=== PATIENT | female | born 1950 | race Caucasian/White ===

== ENCOUNTER 2016-12-23 07:11 | Observation (INO) | payer SELFPAY ==
[2016-12-23] MEDS ORDERED: NITROGLYCERIN 0.4 MG TAB.SUBL SL PRN (07:16)
[2016-12-23] MEDS ORDERED: ASPIRIN 81 MG CHEW TAB PO ONE (07:16)
[2016-12-23 07:31] LABS: BASOPHILS % 1.2 (0.0-1.5); EOSINOPHILS % 2.3 % (0.0-6.8); MEAN CORPUSCULAR HEMOGLOBIN 30.6 pg (28.0-34.0); MEAN CORPUSCULAR VOLUME 87.2 fl (80.0-100.0); MONOCYTES % 5.9 % (0.0-11.0); NEUTROPHILS # 3.7 # k/uL (1.4-7.7)
--- NOTE | 2016-12-23 07:43 | ED Physician Documentation ---
Chest Pain - HISTORIAN Historian: patient - HPI Stated Complaint: chest pain Chief Complaint: Chest Pain Onset: days ago (5 days) Timing: sudden onset (this AM at 04:30) Duration: waxing, waning Last known Well Date: 12/23/16 Last Known Well Time: 04:30 Last known Well Code/Unknown Code: Known Context: sleep Severity: moderate Quality: aching, sharp Chest Pain Radiation: back Chest Pain Signs/Symptoms: denies: nausea, vomiting, diaphoresis, cool extremities, dyspnea Worsened By: deep breaths Relieved By: nitroglycerin Further Comments: yes (Patient states that gabe has been ahving some intermittent chest pain that started on Sat while mowing the lawn. Has been having episodes since then, lasts for 15sec then goes away. Will have several episodes then goes away. Discribes as squeeze then release.) - ROS CONST: none. denies: fever, chills GI/: denies: vomiting, nausea, black stools - PAST HX [place] risk factors: hypertension, hyperlipidemia, cardiac disease DVT/PE Risk Factors: none Neuro deficit: none GI disease: GERD Immunizations: referred to PCP Allergies/Adverse Reactions: Allergies Allergy/AdvReac Type Severity Reaction Status Date / Time Penicillins Allergy Verified 12/23/16 07:33 red dye Allergy Verified 12/23/16 07:36 shellfish derived Allergy Verified 12/23/16 07:33 Sulfa (Sulfonamide Allergy Verified 12/23/16 07:33 Antibiotics) morphine AdvReac Hallucinati Verified 12/23/16 07:33 ons - SOCIAL HX Smoking History: greater than 1 pack/day (1 ppd) Alcohol Use: none Drug Use: none - FAMILY HX Family HX: CAD over 55 - VITAL SIGNS Vital Signs: Vital Signs Temp Pulse Resp BP Pulse Ox 98.1 F 91 H 15 167/118 99 12/23/16 07:11 12/23/16 07:16 12/23/16 07:11 12/23/16 07:11 12/23/16 07:16 - REVIEWED ASSESSMENTS Nursing Assessment Reviewed: Yes Vitals Reviewed: Yes Progress - Progress Progress: 08:43 Patient had two more short (seconds) episodes cramping like pain - EKG/XRAY/CT EKG: NSR (occasional PVC), nonspecific ST T wave chg XRAY: chest (WNL) ED Results Lab/Radiology - Lab Results Lab Results: Lab Results 12/23/16 07:25 WBC 6.50 K/ul K/ul (4.00-12.00) RBC 5.24 M/ul H M/ul (3.90-5.20) Hgb 16.0 g/dL g/dL (12.0-16.0) Hct 45.7 % % (34.5-46.5) MCV 87.2 fl fl (80.0-100.0) MCH 30.6 pg pg (28.0-34.0) MCHC 35.1 g/dL g/dL (30.0-36.0) RDW 13.3 % % (11.3-14.3) Plt Count 192 K/mm3 K/mm3 (130-400) Neut % (Auto) 57.0 % % (39.0-79.0) Lymph % (Auto) 32.0 % % (16.0-50.0) Amelia % (Auto) 5.9 % % (0.0-11.0) Eos % (Auto) 2.3 % % (0.0-6.8) Baso % (Auto) 1.2 (0.0-1.5) Neut # (Auto) 3.7 # k/uL # k/uL (1.4-7.7) Lymph # (Auto) 2.1 # k/uL # k/uL (0.6-4.0) Amelia # (Auto) 0.4 # k/uL # k/uL (0.0-0.9) Eos # (Auto) 0.2 # k/uL # k/uL (0.0-0.6) Baso # (Auto) 0.1 # k/uL # k/uL (0.0-0.5) Reactive Lymphs % 1.6 % % (0.0-5.0) Reactive Lymphs # 0.1 # k/uL # k/uL (0.0-0.8) - Orders Orders: ED Orders Category Date Time Status Continuous EKG monitoring Q30M Care 12/23/16 07:16 Active Continuous Pulse Oximetry Q30M Care 12/23/16 07:16 Active CHEST 1 VIEW [RAD] Stat Exams 12/23/16 07:16 Ordered CBC/PLATELET/DIFF Routine Lab 12/23/16 07:25 Completed CMP Routine Lab 12/23/16 07:25 Received CREATINE KINASE Routine Lab 12/23/16 07:25 Received TROPONIN I (cTnI) Stat Lab 12/23/16 07:25 Received Aspirin Med 12/23/16 07:16 Discontinued 324 mg PO NOW ONE Nitroglycerin [Nitroquick] Med 12/23/16 07:16 Ordered 0.4 mg SL Q5M PRN Oxygen Daily Oxygen 12/23/16 07:30 Ordered EKG WITH COMPARISON Stat Ther 12/23/16 07:16 Ordered Chest Pain Physical Exam - EXAM General Appearance: alert, mild distress EENT: ENT inspection normal, pharynx normal Neck: nml inspection, no carotid bruit. No: lymphadenopathy Respiratory: no resp. distress, chest non-tender, nml breath sounds, resp.distress. No: wheezes, rales, rhonchi CVS: reg. rate & rhythm (occasional skip beat (PVC)), no murmur, pulses full, pulses equal Abdomen: soft, no organomegaly Skin: warm/dry, normal color Extremities: non-tender. No: edema Neuro: oriented X3, mood/affect nml Discharge Clincal Impression: Atypical chest pain Condition: Stable Decision to Admit: [id number] Date of Decison to Admit: 12/23/16 Decision Time: 09:09
[2016-12-23 07:48] LABS: eGFR (African) > 60; eGFR (Non-African) > 60
[2016-12-23] MEDS ORDERED: MAG HYDROX/AL HYDROX/SIMETH 30 ML, Lidocaine 2%Visc 15ml 20 MG, PHENobarb/HYOSCY/ATROPI... PO ONE ×3 (09:05)
[2016-12-23] MEDS ORDERED: MAG HYDROX/AL HYDROX/SIMETH 30 ML UDC PO ONE ×2 (09:09→09:10)
[2016-12-23] MEDS ORDERED: Lidocaine 2%Visc 15ml 20 MG/ML UDC ONE (09:10)
[2016-12-23 09:35] LABS: APPEARANCE,URINE CLEAR (CLEAR); COLOR,URINE YELLOW (YELLOW); OCCULT BLOOD,URINE NEGATIVE (NEGATIVE)
[2016-12-23 09:36] LABS: UROBILINOGEN URINE 0.2 Eu (0.2-1.0)
[2016-12-23] MEDS ORDERED: PANTOPRAZOLE SODIUM 40 MG TABLET PO ONE (09:59)
[2016-12-23] MEDS ORDERED: ENOXAPARIN SODIUM 30 MG/0.3 ML DISP.SYRIN SQ SCH (10:00)
[2016-12-23] MEDS ORDERED: NICOTINE 14mg PATCH.TD24 TD SCH ×2 (11:00→13:00)
[2016-12-23 11:32] VITALS: BMI 60.4
--- NOTE | 2016-12-23 15:10 | Diagnostic Imaging Report ---
SIOMARA ARMAS [facility] [address] [facility].[address] [address] Report Submission Date: Dec 23, 2016 7:41:42 AM CDT Patient Study Name: LUCAS JEFFERY Date: Dec 23, 2016 7:19:47 AM CDT Modality Type: CR Gender: F Description: CHEST : 54 Institution: [facility] Physician: SIOMARA ARMAS HISTORY: 66-year-old female with chest pain. COMPARISON: None available. TECHNIQUE: Single portable AP view of the chest was performed. FINDINGS: No pneumothorax, consolidative infiltrates, or pulmonary edema. There is a right suprahilar calcified granuloma. The heart is not enlarged. IMPRESSION: Old granulomatous disease of the chest without evidence of acute intrathoracic process. Electronically signed on Dec 23, 2016 7:41:42 AM CDT by: Esau WALTER
[2016-12-23 21:19] VITALS: BP 133/75
--- NOTE | 2017-02-14 18:09 | Discharge Summary ---
Discharge Summary - Discharge Sumary History of Present Illness: Patient states that she has been having some intermittent chest pain that started on several days prior to admission while mowing the lawn. Has been having episodes since then, lasts for 15sec then goes away. Will have several episodes then goes away. Discribes as squeeze then release. Patient denies any shortness of breath or diaphoresis associated with it. Patient is not had any previous history of coronary artery disease. Patient was seen in the ED. Cardiac enzymes were negative. Patient was subsequently admitted to rule out possible myocardial infarction or unstable angina. Condition at Discharge: Stable Home Medications: Ambulatory Orders Medication Instructions Recorded Aspirin [Edmundo] 81 mg PO DAILY #100 tab.chew 12/23/16 Nitroglycerin [Nitroquick] 0.4 mg SL Q5M PRN 12/23/16 Omeprazole [Prilosec] 20 mg PO BID #60 capsule. 12/23/16 Consultations this Visit: None Procedures this Visit: None Allergies/Adverse Reactions: Allergies Allergy/AdvReac Type Severity Reaction Status Date / Time Penicillins Allergy Verified 12/23/16 07:33 red dye Allergy Verified 12/23/16 07:36 shellfish derived Allergy Verified 12/23/16 07:33 Sulfa (Sulfonamide Allergy Verified 12/23/16 07:33 Antibiotics) morphine AdvReac Hallucinati Verified 12/23/16 07:33 ons Discharge Summary: Patient did not have any further chest pain during her hospitalization. Patient was started on aspirin therapy. Patient serial troponins and EKGs were normal. It was felt that the patient could be discharged home in stable condition. Patient will have an outpatient cardiology consultation. Patient discharged in stable condition - Final Diagnosis (1) Atypical chest pain Problems: stable
== END 2016-12-23 21:15 | disposition home or self-care (01) ==
LOC: ED 07:11 → SOUTH 09:19 → UNDOADMOB 09:19
PROVIDERS: ADMIT Family Medicine; ATTEND Family Medicine
DX: R07.89 Other chest pain (principal)
CPT/HCPCS: 71010; 80053; 81002; 82550; 84484; 85025; 93005; A9270; G0378; J1650; 96374; 99284; S1016

== ENCOUNTER 2018-01-29 09:40 | Outpatient (CLI) | payer OTHER ==
[2018-01-29 11:16] LABS: eGFR (African) > 60; eGFR (Non-African) > 60
== END 2018-01-29 09:42 ==
LOC: LAB 09:40
PROVIDERS: ATTEND Family Medicine
DX: I25.10 Atherosclerotic heart disease of native coronary artery without angina pectoris (principal); I10 Essential (primary) hypertension
CPT/HCPCS: 36415; 80053; 80061

== ENCOUNTER 2018-07-01 07:23 | Observation (INO) | payer OTHER ==
[2018-07-01] MEDS ORDERED: NITROGLYCERIN 0.4 MG TAB.SUBL SL PRN ×2 (07:37→09:16)
[2018-07-01] MEDS ORDERED: ASPIRIN 81 MG CHEW TAB PO ONE (07:37)
--- NOTE | 2018-07-01 07:37 | ED Physician Documentation ---
General Adult - HISTORIAN Historian: patient - HPI Stated Complaint: chest pain Chief Complaint: General Adult Onset: hours Timing: pain intermittent Severity: moderate Further Comments: yes (Pt is a 68 yo female with hx AMI and stent placement 4 yrs ago who c/o chest pain. Pain has been occuring since 4 am. It is a stabbing pain on the L near the epigastrium that is 7/10 in severity, which comes and goes. It does not last and is almost momentary when it comes, but it comes frequently. Pt has had sob, but she has some chronic sob. She did not have nausea or diaphoresis. Pt was unable to access her nitroglycerin tablets.) - ROS CONST: no problems EYES/ENT: none CVS/RESP: chest pain, shortness of breath GI/: none MS/SKIN/LYMPH: none - PAST HX Past History: AMI Other History: other (HTN, CAD, OR w stents) Surgeries/Procedures: cardiac stent Allergies/Adverse Reactions: Allergies Allergy/AdvReac Type Severity Reaction Status Date / Time Penicillins Allergy Verified 12/23/16 07:33 red dye Allergy Verified 12/23/16 07:36 shellfish derived Allergy Verified 12/23/16 07:33 Sulfa (Sulfonamide Allergy Verified 12/23/16 07:33 Antibiotics) morphine AdvReac Hallucinati Verified 12/23/16 07:33 ons Home Medications: Ambulatory Orders Medication Instructions Recorded Aspirin [Edmundo] 81 mg PO DAILY #100 tab.chew 12/23/16 Omeprazole [Prilosec] 20 mg PO BID #60 capsule. 12/23/16 - SOCIAL HX Smoking History: cigarettes - FAMILY HX Family History: No (unk) - VITAL SIGNS Vital Signs: Vital Signs Temp Pulse Resp BP Pulse Ox 133/75 12/23/16 19:39 - REVIEWED ASSESSMENTS Nursing Assessment Reviewed: Yes Vitals Reviewed: Yes Progress - Progress Progress: GI cocktail Nitro 0.4 mg SL improved after GI cocktail and Nitro, but pain was intermittent, ? med effect Admit to obs, r/o OR. General Adult Physical Exam - PHYSICAL EXAM GENERAL APPEARANCE: moderate distress (anxious) EENT: pharynx normal NECK: normal inspection, supple RESPIRATORY: no resp distress, chest non-tender, breath sounds normal CVS: reg rate & rhythm, heart sounds normal ABDOMEN: soft, no organomegaly, normal bowel sounds BACK: normal inspection, no CVA tenderness SKIN: warm/dry, normal color EXTREMITIES: non-tender, normal range of motion, no evidence of injury, no edema NEURO: oriented X3, motor nml, sensation nml Discharge Clincal Impression: chest pain, hx OR Referrals: Eric Davis MD [Primary Care Provider] - Condition: Stable Disposition: 09 ADMITTED INPATIENT Decision to Admit: [id number] Decision Time: 09:23
[2018-07-01] MEDS ORDERED: MAG HYDROX/ALUMINUM HYD/SIMETH 30 ML, Lidocaine 2%Visc 15ml 20 MG, PHENOBARB-HYOSCYAM-A... PO ONE ×3 (07:41)
[2018-07-01] MEDS ORDERED: NITROGLYCERIN 0.4 MG TAB.SUBL SL ONE (07:57)
[2018-07-01] MEDS ORDERED: MAGNESIUM, ALUMINUM HYDROXIDE 30 ML UDC PO ONE (07:59)
[2018-07-01] MEDS ORDERED: LIDOCAINE HCL 2% VISC. ORAL 300MG/15ML UDC ONE (07:59)
[2018-07-01 08:06] LABS: MEAN CORPUSCULAR HEMOGLOBIN 29.1 pg (28.0-34.0)
[2018-07-01 08:07] LABS: BASOPHILS % 0.6 (0.0-1.5); EOSINOPHILS % 2.3 % (0.0-6.8); MONOCYTES % 7.4 % (0.0-11.0); NEUTROPHILS # 3.5 # k/uL (1.4-7.7)
--- NOTE | 2018-07-01 08:12 | Diagnostic Imaging Report ---
VIKTORIYA CUEVAS [facility] [address] [facility] [address] [address] Report Submission Date: Jul 01, 2018 8:09:16 AM HALAL BUTCHER Patient Study Name: LUCAS JEFFERY Date: Jul 01, 2018 7:49:51 AM HALAL BUTCHER Modality Type: DX Gender: F Description: CHEST 2 VIEW : 54 Institution: [facility] Physician: VIKTORIYA CUEVAS HISTORY: 68-year-old female smoker with chest pain and hypertension COMPARISON: None available TECHNIQUE: 2 views of the chest were performed. FINDINGS: No pneumothorax, consolidative infiltrates, pleural effusions, or pulmonary edema. The lungs are hyperexpanded. The heart is not enlarged. The right costophrenic angle is not included here. IMPRESSION: Pulmonary hyperexpansion without evidence of acute intrathoracic process. Electronically signed on Jul 01, 2018 8:09:16 AM HALAL BUTCHER by: Esau WALTER
[2018-07-01 08:21] LABS: eGFR (Non-African) > 60
[2018-07-01] MEDS ORDERED: LISINOPRIL 2.5 MG TABLET PO ONE (09:16)
[2018-07-01] MEDS ORDERED: LISINOPRIL 5 MG TABLET PO SCH (10:00)
[2018-07-01] MEDS: PANTOPRAZOLE SODIUM 40 MG TABLET.DR PO SCH ×2 (10:23→20:27)
[2018-07-01 10:47] VITALS: BMI 27.7
[2018-07-01] MEDS ORDERED: PANTOPRAZOLE SODIUM 40 MG TABLET.DR ONE (19:17)
--- NOTE | 2018-07-01 19:25 | Discharge Summary ---
Discharge Summary - Discharge Sumary History of Present Illness: (Pt is a 68 yo female with hx AMI and stent placement 4 yrs ago who c/o chest pain. Pain has been occuring since 4 am. It is a stabbing pain on the L near the epigastrium that is 7/10 in severity, which comes and goes. It does not last and is almost momentary when it comes, but it comes frequently. Pt has had sob, but she has some chronic sob. She did not have nausea or diaphoresis. Pt was unable to access her nitroglycerin tablets.) Condition at Discharge: Stable Home Medications: Ambulatory Orders Medication Instructions Recorded Aspirin [Edmundo] 81 mg PO DAILY #100 tab.cate 12/23/16 Omeprazole [Prilosec] 20 mg PO BID #60 capsule. 12/23/16 Consultations this Visit: None Procedures this Visit: None Allergies/Adverse Reactions: Allergies Allergy/AdvReac Type Severity Reaction Status Date / Time Penicillins Allergy Verified 12/23/16 07:33 red dye Allergy Verified 12/23/16 07:36 shellfish derived Allergy Verified 12/23/16 07:33 Sulfa (Sulfonamide Allergy Verified 12/23/16 07:33 Antibiotics) morphine AdvReac Hallucinati Verified 12/23/16 07:33 ons Discharge Summary: Patient is a 68-year-old female that is feeling much better- she is denying any chest pain- she states that she feels ready to go home- she will follow up with PCP this upcoming week. Family is at bedside and feel comfortable with her going home as well. Hospital Course: Cardiac enzymes and repeat EKGs negative - Final Diagnosis (1) Atypical chest pain Problems: Stable- no chest pain Right or Left: Right
[2018-07-01 20:49] VITALS: BP 118/63
== END 2018-07-01 20:30 | disposition home or self-care (01) ==
LOC: ED 07:23 → SOUTH 09:37
PROVIDERS: ADMIT Emergency Medicine; ATTEND Emergency Medicine
DX: R07.89 Other chest pain (principal); I25.2 Old myocardial infarction
CPT/HCPCS: 71046; 80053; 82550; 82553; 84484; 85025; 93005; 99283; A9270; G0378; 99234; S1016